=== PATIENT | female | born 1995 | race Caucasian/White ===

== ENCOUNTER → 2017-03-18 | Outpatient (CLI) | payer MEDICAID ==
[~2017-03-18] MED LIST: COLACE-DPS100 MG PO; DERMOPLAST SPRA56 GM TP; LAN-O-SOOTHE7 GM TP; MOTRIN-DPS800 MG PO; NIPPLECREAM TP; PRENATAL VITAM1 EAC6 PO; TUCKS1 EACH TP; TYLENOL EXTRA500 M1 PO
== END | disposition home or self-care (01) ==
LOC: RAD.S 14:00
DX: Z36 Encounter for antenatal screening of mother (principal); Z3A.22 22 weeks gestation of pregnancy